=== PATIENT | female | born 1985 | race Caucasian/White ===

== ENCOUNTER 2024-06-27 14:29 | Outpatient (AMB) | payer MEDICARE, SELFPAY ==
--- NOTE | 2024-06-27 14:31 | MHC.OFFVIS ---
Vital Signs 06/27/24 14:32 Height 5 ft 2 in Weight 381 lb BMI 69.7 BP 156/85 H Blood Pressure Location Lt radial Position Sitting Pulse 100 Pulse Source Pulse Oximeter Pulse Oximetry (%) 97 Oxygen Delivery Method Room Air Intake Visit Reasons: Chronic pain Allergies Cephalosporins Allergy (Severe, Verified 06/27/24 14:37) Anaphylaxis Penicillins Allergy (Severe, Verified 06/27/24 14:37) Anaphylaxis amoxicillin [From Augmentin] Allergy (Intermediate, Verified 06/27/24 14:37) Throat itch azithromycin Allergy (Intermediate, Verified 06/27/24 14:37) Hives clavulanic acid [From Augmentin] Allergy (Intermediate, Verified 06/27/24 14:37) Throat itch nitrofurantoin [From Macrobid] Allergy (Intermediate, Verified 06/27/24 14:37) Hives Medication List - Last Reconciled 06/27/24 by Marisol Yang acetaminophen ER (Tylenol 8 Hour) 650 mg PO Q8H baclofen 10 mg PO TID clonazepam (Klonopin) 1 mg PO DAILY diazepam 5 mg PO TID PRN duloxetine (Cymbalta) 90 mg PO DAILY estradiol 0.5 mg PO DAILY hydromorphone (Dilaudid) 2 mg PO Q4-6H PRN ibuprofen 800 mg PO Q8H lidocaine HCl 20 mg inhalation ONCE lidocaine-prilocaine 2.5-2.5 % topical omeprazole 40 mg PO DAILY ondansetron HCl 8 mg PO Q8H orphenadrine citrate ER 100 mg PO BID zolpidem (Ambien) 10 mg PO BEDTIME PRN HPI Comments Details: Mayra is a very pleasant 38-year-old female who presents the office today for evaluation and management of her chronic diffuse abdominal pain Referred here by her supervisor product inspection who has been managing her abdominal pain. They prescribed her chronic opioids and will be retiring. She is here discuss options for treatment Patient states she has had ultrasound, CT scans blood work all without findings Underwent surgery to excise endometriosis with total hysterectomy December of 2022. After that she continued with pain to her abdomen. 11/20/2023 had a 2nd surgery where they removed her left ovary. She has a history of endometriosis, PCOS, interstitial cystitis. Her abdominal pain started when she was 8 years old, started menstruating at 9 years old Denies history of sexually transmitted infections, has been tested for these in her supervisor product inspection office Patient complaining of pain from belly button down to her left lower quadrant and across her lower abdomen Pain today is rated as 8/10, constant throughout the day. Denies nausea, vomiting, diarrhea, constipation Pain worse with movements. Improves with oral medications and at times heat will help. In terms of muscle damage condition is described as sharp, cramping, crushing, pulling, exhausting, hurting, aching, heavy, tearing Pain is negatively impacting patient's ability to sleep normally, perform activities of daily living, function normally, enjoy recreational activities, work, mood Denies implantable devices, pacemaker defibrillator Denies current use of anticoagulants Endorses social alcohol use Denies nicotine or tobacco use Endorses rare THC use [facility] Medical History (Updated 06/27/24 @ 15:39 by Elaine Diaz APRN, [employer]) Ovarian cyst Gallstones Kidney stones Fatigue Chronic headaches Mental health disorder History of PCOS Interstitial cystitis Endometriosis Surgical History (Updated 06/27/24 @ 15:39 by Elaine Diaz APRN, LUANN) History of tonsillectomy History of appendectomy H/O: hysterectomy Review of Systems Const All systems reviewed & are unremarkable except as noted in HPI and below Physical Exam Vital Signs: Last Vital Signs Pulse 100 06/27/24 14:32 BP 156/85 H 06/27/24 14:32 Pulse Ox 97 06/27/24 14:32 Oxygen Delivery Method Room Air 06/27/24 14:32 BMI result Body Mass Index 69.7 General: awake, alert, oriented. Answers questions appropriately. Fully engaged in examination. Skin: warm, dry, intact HEENT: Normocephalic. Hearing intact. Cardiac: External chest normal in appearance. Respiratory: No cough, audible wheezing or stridor. Abdomen: Obese. without gross distension. No guarding. Reports diffuse tenderness to palpation. MS: No obvious swelling or deformities. Able to transition from sit to stand unassisted. Ambulates with bilaterally normal heel strike and toe off Neurological: Oriented to person, place, time and situation. Thought process intact. No gait abnormalities appreciated. Psychiatric: Appropriate mood and affect. Good judgment and insight. Assessment & Plan Assessment & Plan (1) Pelvic floor dysfunction: Code(s): M62.89 - Other specified disorders of muscle Category: Medical (2) Intractable abdominal pain: Code(s): R10.9 - Unspecified abdominal pain Category: Medical Plan Patient presented to the office today for evaluation management of her chronic abdominal pain Discussed at length the patient's diagnosis and treatment options. Referral placed for pelvic floor physical therapy Discussed option for intrathecal pain pump trial followed by implant pending positive results of trial. Patient was advised that this would require mental health evaluation, she currently has been health providers and will discuss this with them further. Patient was advised that she would need to withhold oral opiates for 24 hours prior to the trial and 60 days prior to implant. Follow-up with PCP on Wednesday as planned. Follow-up with supervisor product inspection to discuss tapering off opioid medications. We will schedule for intrathecal drug delivery device trial under fluoroscopy guidance with local anesthetic All questions and concerns were answered, patient agrees with the plan. Follow up after trial, sooner if needed. Orders: Referrals Pelvic Piece Hand Referral M62.89 - Other specified disorders of muscle Coding Level of Care Code New Pt Level 4 (42869) Diagnoses Pelvic floor dysfunction M62.89 Intractable abdominal pain R10.9
[2024-06-27 14:32] VITALS: BP 156/85; PULSE 100; O2SAT 97; BMI 69.7
== END 2024-06-27 15:31 | disposition home or self-care (01) ==
PROVIDERS: PCP Physician Assistant; Visit Provider Registered Nurse Emergency
DX: M62.89 Other specified disorders of muscle (principal); R10.9 Unspecified abdominal pain
CPT/HCPCS: 99204

== ENCOUNTER → 2024-06-27 14:29 | Outpatient (BNVA) | payer MEDICARE, SELFPAY | PROVIDERS: PCP Physician Assistant; Visit Provider Registered Nurse Emergency | DX: M62.89 Other specified disorders of muscle (principal); R10.9 Unspecified abdominal pain | CPT/HCPCS: 99202 ==